=== PATIENT | male | born 1960 | race Caucasian/White ===

== ENCOUNTER 2017-04-02 10:15 | Day surgery (SDC) | payer MEDICAID, OTHER ==
[~2017-04-02] VITALS: Ht 165.1 cm; Wt 90.7 kg
[2017-04-02] MEDS ORDERED: MEPERIDINE HCL/PF 100 MG/ML AMP ONE (10:37)
[2017-04-02] MEDS ORDERED: SIMETHICONE 40 MG/0.6 ML ML ONE (10:38)
[2017-04-02] MEDS ORDERED: MIDAZOLAM HCL 5 MG/5 ML VIAL ONE (10:38)
[2017-04-02] MEDS: MIDAZOLAM HCL 5 MG/5 ML VIAL ONE ×3 (11:02→11:08)
[2017-04-02 15:38] VITALS: BP 114/76; PULSE 67; RESP 16
== END 2017-04-02 12:15 | disposition home or self-care (01) ==
LOC: SDS 10:15 → SMU 10:21 → SDS 12:15
PROVIDERS: ATTEND Internal Medicine Gastroenterology
DX: Z12.11 Encounter for screening for malignant neoplasm of colon (principal); K64.8 Other hemorrhoids; E11.9 Type 2 diabetes mellitus without complications; I10 Essential (primary) hypertension; E78.5 Hyperlipidemia, unspecified; K57.30 Diverticulosis of large intestine without perforation or abscess without bleeding
CPT/HCPCS: 45378; J2175; J2250